=== PATIENT | female | born 1990 | race Caucasian/White ===

== ENCOUNTER 2018-09-17 17:20 | Inpatient (IN) | payer SELFPAY ==
[~2018-09-17] VITALS: Ht 160 cm; Wt 72.6 kg
[2018-09-17] MEDS ORDERED: FERR18TA PO (18:04)
[2018-09-17] MEDS ORDERED: PREN-96 PO (18:04)
[2018-09-17] MEDS ORDERED: ASPI81TA27 PO (18:04)
[2018-09-17 19:14] LABS: Alcohol, Urine < 3.0 mg/dL (0-5); Amphetamine Screen, Urine POSITIVE (NEGATIVE); Barbiturate Scree,Urine NEGATIVE (NEGATIVE); Benzodiazephine Screen, Urine NEGATIVE (NEGATIVE); Cannabinoid Screen, Urine NEGATIVE (NEGATIVE); Cocaine Screen, Urine NEGATIVE (NEGATIVE); Opiate Scree,Urine NEGATIVE (NEGATIVE); Phencyclidine Screen, Urine NEGATIVE (NEGATIVE)
== END 2018-09-17 19:50 | disposition home or self-care (01) | DRG 833 ==
LOC: LDRP 17:20
PROVIDERS: ADMIT Specialist; ATTEND Specialist
DX: O36.8190 Decreased fetal movements, unspecified trimester, not applicable or unspecified (principal); O99.320 Drug use complicating pregnancy, unspecified trimester; F19.90 Other psychoactive substance use, unspecified, uncomplicated; Z3A.00 Weeks of gestation of pregnancy not specified
CPT/HCPCS: 59025; 76815; 80307; 81002; G0378